=== PATIENT | female | born 1990 | race African-American/Black ===

== ENCOUNTER 2016-06-15 18:41 | Emergency (ER) | payer OTHER ==
[2016-06-15 18:45] VITALS: BP 115/67; PULSE 78; TEMP 98.1; BMI 20.9
--- NOTE | 2016-06-15 20:28 | PDOC ---
History of Present Illness - General Chief Complaint: Headache Stated Complaint: HEADACHE/NAUSEA/LIGHTHEADED Time Seen by Provider: 06/15/16 19:44 History Source: Patient Exam Limitations: No Limitations - History of Present Illness Timing/Duration: reports: 24 hours Associated Symptoms: reports: nausea/vomiting (nausea yesterday/ no vomiting). denies: fever/chills, slurred speech Past History - Travel Traveled outside of the country in the last 30 days: No Close contact w/someone who was outside of country & ill: No - Past Medical History Allergies/Adverse Reactions: Allergies Allergy/AdvReac Type Severity Reaction Status Date / Time No Known Allergies Allergy Verified 06/15/16 18:42 Home Medications: Ambulatory Orders NK [No Known Home Medication] 06/15/16 - Psycho/Social/Smoking Cessation Hx Suicidal Ideation: No Smoking History: Never smoked Have you smoked in the past 12 months: No Information on smoking cessation initiated: No Hx Alcohol Use: No Drug/Substance Use Hx: No Review of Systems - Review of Systems Able to Perform ROS?: Yes Comments:: 06/15/16 20:27 CONSTITUTIONAL: Absent: fever, chills, diaphoresis, generalized weakness, malaise, loss of appetite HEENT: Absent: rhinorrhea, nasal congestion, throat pain, throat swelling, difficulty swallowing, mouth swelling, ear pain, eye pain, visual Changes CARDIOVASCULAR: Absent: chest pain, loss of consciousness, palpitations, irregular heart rate, peripheral edema RESPIRATORY: Absent: cough, shortness of breath, dyspnea with exertion, orthopnea, wheezing, stridor, hemoptysis GASTROINTESTINAL: Absent: abdominal pain, abdominal distension, nausea, vomiting, diarrhea, constipation, melena, hematochezia GENITOURINARY: Absent: dysuria, frequency, urgency, hesitancy, hematuria, flank pain, genital pain MUSCULOSKELETAL: Absent: myalgia, arthralgia, joint swelling SKIN: Absent: rash, itching, pallor HEMATOLOGIC/IMMUNOLOGIC: Absent: easy bleeding, easy bruising, lymphadenopathy, frequent infections ENDOCRINE: Absent: unexplained weight gain, unexplained weight loss, heat intolerance, cold intolerance NEUROLOGIC: +frontal pierre Absent: focal weakness or paresthesias, dizziness, unsteady gait, seizure, mental status changes, bladder or bowel incontinence PSYCHIATRIC: Absent: anxiety, depression, suicidal or homicidal ideation, hallucinations. Is the patient limited Georgian proficient: No *Physical Exam - Vital Signs Last Vital Signs Temp Pulse Resp BP Pulse Ox 98.1 F 78 18 115/67 100 06/15/16 18:42 06/15/16 18:42 06/15/16 18:42 06/15/16 18:42 06/15/16 18:42 - Physical Exam Comments: 06/15/16 20:28 GENERAL: Well developed, well nourished. Awake and alert. No acute distress. HEENT: Normocephalic, atraumatic. PERRLA, EOMI. No conjunctival pallor. Sclera are non- icteric. Moist mucous membranes. Oropharynx is clear. NECK: Supple. Full ROM. No JVD. Carotid pulses 2+ and symmetric, without bruits. No thyromegaly. No lymphadenopathy. CARDIOVASCULAR: Regular rate and rhythm. No murmurs, rubs, or gallops. Distal pulses are 2+ and symmetric. PULMONARY: No evidence of respiratory distress. Lungs clear to auscultation bilaterally. No wheezing, rales or rhonchi. ABDOMINAL: Soft. Non-tender. Non-distended. No rebound or guarding. No organomegaly. Normoactive bowel sounds. MUSCULOSKELETAL Normal range of motion at all joints. No bony deformities or tenderness. No CVA tenderness. EXTREMITIES: No cyanosis. No clubbing. No edema. No calf tenderness. SKIN: Warm and dry. Normal capillary refill. No rashes. No jaundice. NEUROLOGICAL: Alert, awake, appropriate. Cranial nerves 2-12 intact. No deficits to light touch and temperature in face, upper extremities and lower extremities. No motor deficits in the in face, upper extremities and lower extremities. Normoreflexic in the upper and lower extremities. Normal speech. Toes are down- going bilaterally. Gait is normal without ataxia. PSYCHIATRIC: Cooperative. Good eye contact. Appropriate mood and affect. Progress Note - Progress Note Progress Note: LMP x2d ago 26-year-old female with significant past medical history of migraines presents to the emergency department complaining of a frontal 4/10 dull nonradiating intermittent headache with mild nausea since yesterday around 1400 hrs. The pain is alleviated minimally with Tylenol and there are no exacerbating factors. Patient denies any fever, chills, dizziness, lightheadedness, blurry vision, visual disturbance, neck pains, chest pain, shortness of breath, extremity numbness or tingling sensation. Patient says it feels similar to her previous migraines but is nowhere near the worst headache of her life. *DC/Admit/Observation/Transfer Diagnosis at time of Disposition: Migraine headache Qualifiers: Migraine type: without aura Status migrainosus presence: without status migrainosus Intractability: not intractable Qualified Code(s): G43.009 - Migraine without aura, not intractable, without status migrainosus - Discharge Dispostion Disposition: ELOPED
[2016-06-15] MEDS ORDERED: METOCLOPRAMIDE HCL INJECTION 10 MG/2 ML VIAL IVPUSH ONE (20:31)
[2016-06-15] MEDS ORDERED: METOCLOPRAMIDE HCL INJECTION 10 MG/2 ML VIAL ONE (20:34)
== END 2016-06-15 20:36 | disposition home or self-care (01) ==
LOC: JER 18:41
DX: G43.009 Migraine without aura, not intractable, without status migrainosus (principal)
CPT/HCPCS: 99281-25

== ENCOUNTER 2017-07-03 11:44 | Emergency (ER) | payer SELFPAY ==
[2017-07-03 11:55] VITALS: BP 112/68; PULSE 100; TEMP 98.5; BMI 21.7
--- NOTE | 2017-07-03 12:20 | PDOC ---
History of Present Illness - General Chief Complaint: Pain, Acute Stated Complaint: PAIN/ BACK, JOINTS, KNEES Time Seen by Provider: 07/03/17 12:08 - History of Present Illness Initial Comments: 07/03/17 12:17 CHIEF COMPLAINT: back pain HISTORY OF PRESENT ILLNESS: 27 yo F presents to [facility] with generalized body pain s/p lifting patients. 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 Patient reports that she has had chronic back pain for "like 2 years" but it got worse three days ago and now when she walks she feels pain to her low back " especially the left side." She denies any loss of bowel or bladder function or any loss of sensation to her extremities. No recent travel or sick contacts. PAST MEDICAL HISTORY: Denies past medical history FAMILY HISTORY: Denies SOCIAL HISTORY:Denies tobacco, alcohol, illicit drug use. SURGICAL HISTORY: Denies ALLERGIES: No known drug allergies REVIEW OF SYSTEMS General/Constitutional: Denies fever or chills. Denies weakness, weight change. HEENT: Denies change in vision. Denies ear pain or discharge. Denies sore throat. Cardiovascular: Denies chest pain or shortness of breath. Respiratory: Denies cough, wheezing, or hemoptysis. Gastrointestinal: Denies nausea, vomiting, diarrhea or constipation. Denies rectal bleeding. Genitourinary: Denies dysuria, frequency, or change in urination. Musculoskeletal: Back pain, knee pain, generalized "joint pain when you push on them." Skin: Denies rash or easy bruising. Neurologic: Denies headache, vertigo, loss of consciousness, or loss of sensation. PHYSICAL EXAM General Appearance: Well-appearing, appropriately dressed. No apparent distress. HEENT: EOMI, PERRLA0. No conjunctival pallor. No photophobia, scleral icterus. Neck: Supple. Trachea midline. No tenderness, rigidity, carotid bruit, stridor , lymphadenopathy, or thyromegaly. Respiratory/Chest: Lungs CTAB. Cardiovascular: RRR. S1, S2. Musculoskeletal/Extremities: TTP to b/l paravertebral muscles. Normal inspection. FROM of all extremities, normal capillary refill. Pelvis Stable. No CVA tenderness. No tenderness to extremities, pedal edema, swelling, erythema or deformity. Integumentary: Appropriate color, dry, warm. No cyanosis, erythema, jaundice or rash Neurologic: commission broker II-XII intact. Fully oriented, alert. Appropriate mood/affect. Motor strength 5/5. No appreciable EOM palsy, facial droop or sensory deficit. Past History - Past Medical History Allergies/Adverse Reactions: Allergies Allergy/AdvReac Type Severity Reaction Status Date / Time No Known Allergies Allergy Verified 07/03/17 11:49 Home Medications: Ambulatory Orders Cyclobenzaprine HCl 7.5 mg PO HS PRN #7 tablet 07/03/17 Diclofenac Sodium 50 mg PO BID #14 tablet. 07/03/17 Salmeterol/Fluticasone [Advair 100Mcg/50Mcg -] 1 inh PO BID 07/03/17 COPD: No - Suicide/Smoking/Psychosocial Hx Smoking History: Never smoked Have you smoked in the past 12 months: No Information on smoking cessation initiated: No Hx Alcohol Use: Yes (socially) Drug/Substance Use Hx: No Substance Use Type: None *Physical Exam - Vital Signs Last Vital Signs Temp Pulse Resp BP Pulse Ox 98.5 F 100 H 18 112/68 100 07/03/17 11:49 07/03/17 11:49 07/03/17 11:49 07/03/17 11:49 07/03/17 11:49 Medical Decision Making - Medical Decision Making 07/03/17 12:29 27 yo F presents to [facility] with generalized body pain s/p lifting patients. -Toraol NSAIDS, muscle relaxants *DC/Admit/Observation/Transfer Diagnosis at time of Disposition: Low back pain Qualifiers: Chronicity: chronic Back pain laterality: midline Sciatica presence: with sciatica Sciatica laterality: sciatica laterality unspecified Qualified Code(s) : M54.40 - Lumbago with sciatica, unspecified side - Discharge Dispostion Disposition: HOME Condition at time of disposition: Stable Admit: No - Prescriptions Prescriptions: Cyclobenzaprine HCl 7.5 mg PO HS PRN #7 tablet PRN Reason: Back Pain Diclofenac Sodium 50 mg PO BID #14 tablet.dr - Referrals Referrals: Imtiaz Scott MD [Staff Physician] - - Patient Instructions Printed Discharge Instructions: DI for Low Back Pain Additional Instructions: Please take medication as prescribed. As discussed, if your symptoms do not improve in 5-7 days, please follow up with an orthopedics for further evaluation and a possible MRI or physical therapy. If you experience any loss of sensation to your extremities, any loss of bowel or bladder function, any swelling or increased pain to your leg, please return to the ER. - Post Discharge Activity Forms/Work/School Notes: Back to Work
[2017-07-03] MEDS ORDERED: KETOROLAC TROMETHAMINE 60 MG/2 ML VIAL IM ONE (12:25)
[2017-07-03] MEDS ORDERED: KETOROLAC TROMETHAMINE 60 MG/2 ML VIAL ONE (12:31)
== END 2017-07-03 12:50 | disposition home or self-care (01) ==
LOC: JERFT 11:44
PROC: 3E0233Z Introduction of Anti-inflammatory into Muscle, Percutaneous Approach (ICD-10-PCS; principal; 2017-07-03)
DX: M54.40 Lumbago with sciatica, unspecified side (principal)
CPT/HCPCS: 84703; 99281-25

== ENCOUNTER 2017-12-25 16:29 | Emergency (ER) | payer OTHER ==
--- NOTE | 2017-12-25 16:38 | PDOC ---
Rapid Medical Evaluation Time Seen by Provider: 12/25/17 16:36 Medical Evaluation: Allergies Allergy/AdvReac Type Severity Reaction Status Date / Time No Known Allergies Allergy Verified 07/03/17 11:49 12/25/17 16:36 I have performed a brief in-person evaluation of this patient. The patient presents with a chief complaint of: lower abdominal pain with vaginal bleeding- took medabon for termination at 13wks. LMP-08/03/17. Pertinent physical exam findings: lower abdominal tenderness I have ordered the following: labs, urine, TVUS The patient will proceed to the ED for further evaluation. Discharge Disposition - Diagnosis Lower abdominal pain - Referrals - Patient Instructions - Post Discharge Activity
[2017-12-25 16:41] VITALS: BMI 22.2
[2017-12-25 17:15] LABS: BASO % 1.1 % (0-2.0); EOS % 1.7 % (0-4.5); HEMATOCRIT 36.8 % (32.4-45.2); HEMOGLOBIN 11.9 GM/dL (10.7-15.3); LYMPH % 40.9 % (8-40); MCH 25.6 pg (25.7-33.7); MCHC 32.4 g/dl (32.0-36.0); MEAN CELL VOLUME 79.2 fl (80-96); MEAN PLT VOLUME 9.6 fl (7.5-11.1); NEUT % 46.3 % (42.8-82.8); PLATELET COUNT 257 K/MM3 (134-434); RBC 4.65 M/mm3 (3.60-5.2); RDW 13.6 % (11.6-15.6); WHITE BLOOD COUNT 5.7 K/mm3 (4.0-10.0)
[2017-12-25 17:16] LABS: HCG,QUALITATIVE URINE Positive
--- NOTE | 2017-12-25 17:20 | PDOC ---
Attending Attestation - HPI HPI: 12/25/17 18:25 The patient is a 27 year old female, with a significant past medical history of , who presents to the emergency department with abdominal cramping, weakness, fatigue, and vaginal bleeding after having an at 13 weeks on 12/06/17. She states she took the medication, Medabon (which she obtained from [facility]), and administered one pill by mouth on December 06, and another pill vaginally 36 hrs after. Patient states that she experienced heavy vaginal bleeding, cramping and thinks she passed the placenta. She is here today to make sure she has fully aborted . Patient also states she wants STD testing due to unfaithful partner. The patient denies chest pain, shortness of breath, headache and dizziness. The patient denies fever, chills, nausea, vomit, diarrhea and constipation. The patient denies dysuria, urgency and hematuria. Allergies: NKDA - Physicial Exam PE: 12/25/17 18:25 Constitutional: Awake, alert, oriented. No acute distress. Head: Normocephalic. Atraumatic Eyes: PERRL. EOMI. Conjunctivae are not pale. Cardiovascular: Regular rate. Regular rhythm. S1, S2 regular. Distal pulses are 2+ and symmetric. Pulmonary/Chest: No evidence of respiratory distress. Clear to auscultation bilaterally No wheezing, rales or rhonchi. Abdominal: Soft and non-distended. There is no tenderness. No rebound, guarding or rigidity. No organomegaly. No palpable masses. Good bowel sounds. Back: No CVA tenderness. DRIFT MINER: (+) Trace blood from OS. No active bleeding. No CMT. mild bilateral adnexal tenderness. Musculoskeletal: No edema. No cyanosis. No clubbing. Full range of motion in all extremities. Nocalf tenderness. Radial/pedal pulses are intact and 2+ bilaterally Skin: Skin is warm and dry. No petechiae. No purpura. Neurological: Alert and oriented to person, place, and time. Cranial nerves II- XII are grossly intact. Normal speech. Strength is grossly symmetric. No sensory deficits. Psychiatric: Good eye contact. Normal interaction, affect and behavior. - Medical Decision Making 12/25/17 18:26 Documentation prepared by Anna Mckeon, acting as medical laboratory technicians for Kitty Jernigan DO EXAM#: TYPE/EXAM: RESULT: [id number] US/TRANSVAGINAL US PREG Transvaginal obstetrical ultrasound Impression: Mild endometrial thickening is noted (0.8 cm) with associated increased vascularity which may be on the basis of retained products of conception. The sonographic appearance is nonspecific. Correlate clinically. 3.2 cm right ovarian cyst. Reported By: Luisito Calloway MD 12/25/17212512/25/17 21:37 Dr. Bashir, [employer], was called via phone answering service at this time ) and the patient's case was discussed. <Anna Mckeon - Last Filed: 12/25/17 21:40> - Resident Resident Name: Fay Patel - ED Attending Attestation I have performed the following: I have examined & evaluated the patient, The case was reviewed & discussed with the resident, I agree w/resident's findings & plan, Exceptions are as noted - Medical Decision Making 12/25/17 17:19 I, Dr. Kitty Jernigan, DO, attest that this document has been prepared under my direction and personally reviewed by me in its entirety. I further attest, that it accurately reflects all work, treatment, procedures and medical decision -making performed by me. 12/25/17 18:36 a/p: 27yo at around 14 weeks gestation who states she took a medication Medabon from [place] to terminate her preg at 13 weeks gestation. Pt states the medication was not indicated after 8 weeks gestation, but she took the meidcation anyway -pt states she could not [facility] -pt with vaginal bleeding and cramping and lower abd pain -will send labs, pt requesting STD testing and HIV testing -will perform ultrasound -will discuss with LITHOGRAPHIC PROOFER after getting ultrasound results -will send beta, type and screen -no cmt on exam 12/25/17 21:42 pt with retained products on ultrasound beta [address] Bashir from [employer] - states she will need a d&c, but does not need it tonight. states the patient should follow up in the office on Saturday with Dr. Bashir at 9am to schedule her procedure 12/25/17 21:45 pt B+ <Kitty Jernigan - Last Filed: 12/25/17 21:46>
[2017-12-25 17:27] LABS: URINE APPEARANCE CLEAR; URINE BILIRUBIN NEGATIVE (<2.0 mg/dL); URINE COLOR LTYELLOW; URINE GLUCOSE (UA) NEGATIVE (NEGATIVE); URINE KETONE NEGATIVE (NEGATIVE); URINE LEUK ESTERASE 2+ (NEGATIVE); URINE NITRITE NEGATIVE (NEGATIVE); URINE PROTEIN NEGATIVE (NEGATIVE); URINE UROBILINOGEN NEGATIVE mg/dL (0.2-1.0)
[2017-12-25 17:43] LABS: EPI CELLS RARE /HPF (FEW)
[2017-12-25 17:54] LABS: ALBUMIN 3.7 g/dl (3.4-5.0); ALK PHOS 60 U/L (45-117); ANION GAP 8 MMOL/L (8-16); BILIRUBIN,TOTAL 0.2 mg/dL (0.2-1); BLOOD UREA NITROGEN 7 mg/dL (7-18); CALCIUM 8.7 mg/dL (8.5-10.1); CHLORIDE 106 mmol/L (98-107); CO2 25 mmol/L (21-32); CREATININE 0.7 mg/dL (0.55-1.3); GLUCOSE,RANDOM 81 mg/dL (74-106); POTASSIUM 3.8 mmol/L (3.5-5.1); SGOT/AST 18 U/L (15-37); SGPT/ALT 22 U/L (13-61); SODIUM 138 mmol/L (136-145)
--- NOTE | 2017-12-25 18:05 | PDOC ---
History of Present Illness - General Chief Complaint: Pain, Acute Stated Complaint: w/vag.bleed Time Seen by Provider: 12/25/17 16:36 History Source: Patient Exam Limitations: No Limitations - History of Present Illness Initial Comments: 12/25/17 17:54 This is a 27 year old female with no significant past medical history, who presents with fatigue, abdominal pain and vaginal bleeding for the past month, after taking an pill. Patient states [facility] At that time, they told her she was 13weeks gestation by ultrasound. She wanted the medical pill but they did not offer it to her due to timing of . She was unable to have the surgical because she could not afford it she states. Patient then took a pill called [place] from her country, [facility]. She administered one pill by mouth on December 06, and another vaginally 36hrs after. Patient states that she experienced heavy vaginal bleeding, cramping and thinks she passed the placenta. She is here today to make sure she has fully aborted . Patient also states she wants STD testing due to unfaithful partner. Denies fever, chills, n, v, chest pain, sob. 12/25/17 18:15 12/25/17 18:42 Past History - Past Medical History Allergies/Adverse Reactions: Allergies Allergy/AdvReac Type Severity Reaction Status Date / Time No Known Allergies Allergy Verified 07/03/17 11:49 Home Medications: Ambulatory Orders Diclofenac Sodium 50 mg PO BID #14 tablet. 07/03/17 Salmeterol/Fluticasone [Advair 100Mcg/50Mcg -] 1 inh PO BID 07/03/17 Cyclobenzaprine HCl 5 mg PO HS PRN #7 tablet 07/05/17 Anemia: Yes COPD: No Other medical history: sickle cell trait - Surgical History Appendectomy: No Gastric Stapling: No Lung Surgery: No Neurologic Surgery: No - Immunization History Immunization Up to Date: No - Suicide/Smoking/Psychosocial Hx Smoking History: Never smoked Have you smoked in the past 12 months: No Information on smoking cessation initiated: No Hx Alcohol Use: No Drug/Substance Use Hx: No Substance Use Type: None Review of Systems - Review of Systems Comments:: 12/25/17 18:07 GENERAL/CONSTITUTIONAL: No fever or chills. No weakness. HEAD, EYES, EARS, NOSE AND THROAT: No change in vision. No ear pain or discharge. No sore throat. CARDIOVASCULAR: No chest pain or shortness of breath RESPIRATORY: No cough, wheezing, or hemoptysis. GASTROINTESTINAL: No nausea, vomiting, diarrhea or constipation. +ABDOMINAL PAIN GENITOURINARY: No dysuria, frequency, or change in urination. MUSCULOSKELETAL: No joint or muscle swelling or pain. No neck or back pain. SKIN: No rash NEUROLOGIC: No headache, vertigo, loss of consciousness, or change in strength/ sensation. ENDOCRINE: No increased thirst. No abnormal weight change HEMATOLOGIC/LYMPHATIC: No anemia, easy bleeding, or history of blood clots. ALLERGIC/IMMUNOLOGIC: No hives or skin allergy. *Physical Exam - Vital Signs Last Vital Signs Temp Pulse Resp BP Pulse Ox 98.4 F 75 18 118/73 99 12/25/17 16:38 12/25/17 16:38 12/25/17 16:38 12/25/17 16:38 12/25/17 16:38 - Physical Exam Comments: GENERAL: Awake, alert, and fully oriented, in no acute distress HEAD: No signs of trauma, normocephalic, atraumatic EYES: PERRLA, EOMI, sclera anicteric, conjunctiva clear ENT: Auricles normal inspection, hearing grossly normal, nares patent, oropharynx clear without exudates. Moist mucosa NECK: Normal ROM, supple, no lymphadenopathy, JVD, or masses LUNGS: No distress, speaks full sentences, clear to auscultation bilaterally HEART: Regular rate and rhythm, normal S1 and S2, no murmurs, rubs or gallops, peripheral pulses normal and equal bilaterally. ABDOMEN: Soft, nontender, normoactive bowel sounds. No guarding, no rebound. No masses EXTREMITIES : Normal inspection, Normal range of motion, no edema. No clubbing or cyanosis. NEUROLOGICAL: Cranial nerves II through XII grossly intact. Normal speech, normal gait, no focal sensorimotor deficits PELVIC:cervix normal; os closed; no discharge; no active bleeding; 12/25/17 18:09 12/25/17 18:10 ED Treatment Course - LABORATORY CBC & Chemistry Diagram: 12/25/17 17:02 12/25/17 16:58 - ADDITIONAL ORDERS Additional order review: Laboratory Results 12/25/17 17:00 Urine Color Ltyellow Urine Appearance Clear Urine pH 8.0 Ur Specific [place] 1.015 Urine Protein Negative Urine Glucose (UA) Negative Urine Ketones Negative Urine Blood 2+ H Urine Nitrite Negative Urine Bilirubin Negative Urine Urobilinogen Negative Ur Leukocyte Esterase 2+ H Urine WBC (Auto) 3 Urine RBC (Auto) 4 Ur Epithelial Cells Rare Urine HCG, Qual Positive 12/25/17 17:02 RBC 4.65 MCV 79.2 L MCHC 32.4 RDW 13.6 MPV 9.6 Neutrophils % 46.3 Lymphocytes % 40.9 H Monocytes % 10.0 Eosinophils % 1.7 Basophils % 1.1 Medical Decision Making - Medical Decision Making 12/25/17 18:11 27 year old female presents with abdominal pain and vaginal bleed after taking a unknown pill at 13 weeks gestation. No signs of sepsis. Denies fever, chills, vitals wnl. Need to confirm complete expulsion of . -hcg; ua; uc; -pelvic US' if negative transvagnial US; if + for contents of will need D&C -C/G for std ; HIV testing -US pending; signed out to night team. 12/25/17 18:37 12/25/17 18:46 *DC/Admit/Observation/Transfer Diagnosis at time of Disposition: Lower abdominal pain - Referrals Referrals: Sherman Angel MD [Primary Care Provider] - - Patient Instructions - Post Discharge Activity
--- NOTE | 2017-12-25 21:54 | PDOC ---
*Physical Exam - Vital Signs Last Vital Signs Temp Pulse Resp BP Pulse Ox 98.4 F 75 18 118/73 99 12/25/17 16:38 12/25/17 16:38 12/25/17 16:38 12/25/17 16:38 12/25/17 16:38 - Physical Exam Comments: 12/25/17 21:51 General Appearance: Nourished. No Apparent Distress HEENT: No Pharyngeal Erythema, Tonsillar Exudate, Tonsillar Erythema Neck: No Cervical Lymphadenopathy Respiratory/Chest: Lungs Clear, Normal Breath Sounds. No Crackles, Rales, Rhonchi, Wheezing Cardiovascular: Regular Rhythm, Regular Rate. No Murmur, Gallops, Rubs Gastrointestinal/Abdominal: Normal Bowel Sounds, Soft. No Guarding, Rebound, Tenderness Musculoskeletal: No CVA Tenderness Extremity: Normal Capillary Refill Integumentary: Normal Color, Dry, Warm Neurologic: Fully Oriented, Alert, Normal Mood/Affect, Normal Response, ED Treatment Course - LABORATORY CBC & Chemistry Diagram: 12/25/17 17:02 12/25/17 16:58 - ADDITIONAL ORDERS Additional order review: Laboratory Results 12/25/17 12/25/17 12/25/17 20:16 17:00 16:58 Sodium Potassium Chloride Carbon Dioxide Anion Gap BUN Creatinine Creat Clearance w eGFR Random Glucose Calcium Total Bilirubin AST ALT Alkaline Phosphatase Total Protein Albumin Beta HCG, Quant Urine Color Ltyellow Urine Appearance Clear Urine pH 8.0 Ur Specific [place] 1.015 Urine Protein Negative Urine Glucose (UA) Negative Urine Ketones Negative Urine Blood 2+ H Urine Nitrite Negative Urine Bilirubin Negative Urine Urobilinogen Negative Ur Leukocyte Esterase 2+ H Urine WBC (Auto) 3 Urine RBC (Auto) 4 Ur Epithelial Cells Rare Urine HCG, Qual Positive Blood Type B POSITIVE B POSITIVE Antibody Screen Negative 12/25/17 16:58 Sodium 138 Potassium 3.8 Chloride 106 Carbon Dioxide 25 Anion Gap 8 BUN 7 Creatinine 0.7 Creat Clearance w eGFR > 60 Random Glucose 81 Calcium 8.7 Total Bilirubin 0.2 AST 18 ALT 22 Alkaline Phosphatase 60 Total Protein 8.0 Albumin 3.7 Beta HCG, Quant 1236.2 Urine Color Urine Appearance Urine pH Ur Specific [place] Urine Protein Urine Glucose (UA) Urine Ketones Urine Blood Urine Nitrite Urine Bilirubin Urine Urobilinogen Ur Leukocyte Esterase Urine WBC (Auto) Urine RBC (Auto) Ur Epithelial Cells Urine HCG, Qual Blood Type Antibody Screen 12/25/17 17:02 RBC 4.65 MCV 79.2 L MCHC 32.4 RDW 13.6 MPV 9.6 Neutrophils % 46.3 Lymphocytes % 40.9 H Monocytes % 10.0 Eosinophils % 1.7 Basophils % 1.1 Progress Note - Progress Note Progress Note: The patient is a 27 year old female who presents for evaluation of vaginal bleeding after taking an " pill" several weeks ago. The patient is pending US evaluate for retained products of conception. Medical Decision Making - Medical Decision Making 12/25/17 21:56 US demonstrates concerns for retained products of conception as read by our radiologist. We discussed the case with Dr. Bashir with OB who states that the patient can follow outpatient in the office in 2 days on 12/27/17 at 9am. We discussed the results, plan, and return precautions with the patient who voiced understanding and is agreeable with the plan. *DC/Admit/Observation/Transfer Diagnosis at time of Disposition: Lower abdominal pain - Discharge Dispostion Disposition: HOME Condition at time of disposition: Stable Decision to Admit order: No - Referrals Referrals: Sherman Angel MD [Primary Care Provider] - Afua Bashir MD [Staff Physician] - - Patient Instructions Printed Discharge Instructions: DI for Abdominal Pain-Adult Additional Instructions: Please return to the ER if you experience concerning or worsening symptoms including worsening difficulty breathing, weakness, abdominal pain, vomiting, fevers or chest pain. Your lab results were normal here in the ER. However your ultrasound results show that you have some retained products of conception. Please call to schedule a follow up appointment with our OB Specialist Dr. Bashir tomorrow to discuss your ER visit and further management of your symptoms. Otherwise you are to follow up with Dr. Bashir in the office Saturday at 9am. - Post Discharge Activity
[2017-12-25 22:12] VITALS: BP 114/70; PULSE 70; TEMP 97.9
== END 2017-12-25 22:12 | disposition home or self-care (01) ==
LOC: JER 16:29
DX: R10.30 Lower abdominal pain, unspecified (principal)
CPT/HCPCS: 36415; 76817-TC; 80053; 81003; 81015; 84702; 84703; 85025; 86850; 86900; 86901; 87086; 87389; 87491; 87591; 87661; 99282-25